=== PATIENT | female | born 1985 | race African-American/Black ===

== ENCOUNTER 2017-02-24 16:04 | Emergency (ER) | payer OTHER ==
[~2017-02-24] VITALS: Ht 154.9 cm; Wt 72.0 kg
[~2017-02-24 16:04] MED LIST: CEPH500C PO
[2017-02-24 16:07] VITALS: BP 137/76; PULSE 104; RESP 20; TEMP 98.3; O2SAT 97
--- NOTE | 2017-02-24 16:56 | RADRPT ---
EXAM DATE/TIME: 02/24/2017 16:39 [facility] COMPARISON: No previous studies available for comparison. INDICATIONS : Right distal foot pain, dropped heavy object on foot MEDICAL HISTORY : None. SURGICAL HISTORY : None. ENCOUNTER: Initial ACUITY: 1 day PAIN SCORE: 10/10 LOCATION: Right Foot FINDINGS: Three view examination of the right foot demonstrates a fracture at the distal aspect of the third di stal phalanx involving the tuft. No other fracture is seen. The tarsal bones appear intact. The int erphalangeal and metatarsophalangeal joints are intact. The calcaneus is intact. Bony mineralizatio n is normal. CONCLUSION: Fracturing of the distal aspect of the third distal phalanx. Alexandro Hinkle MD on February 24, 2017 at 16:52 Board Certified Radiologist. This report was verified electronically.
--- NOTE | 2017-02-24 17:09 | PD ---
HPI Chief Complaint: Injury Time Seen by Provider: 16:58 Travel History International Travel<30 days: No Contact w/Intl Traveler<30days: No Traveled to known affect area: No History of Present Illness HPI 31-year-old Afro-[place] female presents emergency department status post dropping her nebulizer on her right foot. She now complains of right third toe pain. She wonders about possible fracture. There is no wound or abrasion. She has no other injury. She is allergic to azithromycin and erythromycin. PFSH Past Medical History Arthritis: No Asthma: No Autoimmune Disease: No Blood Disorders: No Anxiety: No Depression: No Heart Rhythm Problems: No Cancer: No Cardiovascular Problems: No High Cholesterol: No Chemotherapy: No Chest Pain: No Congestive Heart Failure: No COPD: No Cerebrovascular Accident: No Diabetes: No Diminished Hearing: No Endocrine: No Gastrointestinal Disorders: No GERD: No Glaucoma: No Genitourinary: No Headaches: No Hepatitis: No Hiatal Hernia: No Heparin Induced Thrombocytopen: No Hypertension: No Immune Disorder: No Implanted Vascular Access Dvce: No Kidney Stones: No Musculoskeletal: No Neurologic: No Psychiatric: No Reproductive: No Respiratory: No Immunizations Current: Yes Migraines: No Myocardial Infarction: No Pneumonia: Yes Radiation Therapy: No Renal Failure: No Seizures: No Sickle Cell Disease: No Thyroid Disease: No Ulcer: No PNEUMOCCOCAL Vaccine (Year): 2 ?: Not LMP: 02/02/17 : 4 Para: 2 Miscarriage: 1 : 1 Past Surgical History AICD: No Appendectomy: No Arteriovenous Shunt: No Cardiac Surgery: No Cholecystectomy: No Ear Surgery: No Endocrine Surgery: No Eye Surgery: No Gynecologic Surgery: Yes ( 2004) Insulin Pump: No Joint Replacement: No Neurologic Surgery: No Oral Surgery: Yes Pacemaker: No Thoracic Surgery: No Other Surgery: Yes (EPIDURAL WITH DELIVERY 2004) Social History Alcohol Use: No Tobacco Use: No Substance Use: No Allergies-Medications (Allergen,Severity, Reaction): Coded Allergies: azithromycin (Unverified Allergy, Severe, 11/30/16) erythromycin base (Unverified Allergy, Severe, "COULDNT FEEL LEGS", ) Reported Meds & Prescriptions Reported Meds & Active Scripts Active Cephalexin 500 Mg Cap 500 Mg PO Q12H Review of Systems Except as stated in HPI: all other systems reviewed are Neg General / Constitutional: No: Fever Eyes: No: Visual changes HENT: No: Headaches Cardiovascular: No: Chest Pain or Discomfort Respiratory: No: Shortness of Breath Gastrointestinal: No: Abdominal Pain Genitourinary: No: Dysuria Musculoskeletal: No: Pain Skin: No Rash Neurologic: No: Weakness Psychiatric: No: Depression Endocrine: No: Polydipsia Hematologic/Lymphatic: No: Easy Bruising Physical Exam Narrative GENERAL: Patient appears no acute distress. SKIN: Warm and dry. Normal color. Normal turgor. No obvious signs of trauma. HEAD: Atraumatic. Normocephalic. EYES: Pupils equal and round. No scleral icterus. No injection or drainage. ENT: No nasal bleeding or discharge. Mucous membranes pink and moist. NECK: Trachea midline. No JVD. CARDIOVASCULAR: Regular rate and rhythm. RESPIRATORY: No accessory muscle use. Clear to auscultation. Breath sounds equal bilaterally. GASTROINTESTINAL: Abdomen soft, non-tender, nondistended. Hepatic and splenic margins not palpable. MUSCULOSKELETAL: Extremities without clubbing, cyanosis, or edema. No obvious deformities. No obvious signs of injury to the right foot however the patient complains of pain at the base of the right third toe. NEUROLOGICAL: Awake and alert. No obvious cranial nerve deficits. Motor grossly within normal limits. Five out of 5 muscle strength in the arms and legs. Normal speech. PSYCHIATRIC: Appropriate mood and affect; insight and judgment normal. Data Data Last Documented VS Vital Signs Date Time Temp Pulse Resp B/P (MAP) Pulse Ox O2 Delivery O2 Flow Rate FiO2 02/24/17 16:17 16 100 Room Air 02/24/17 16:07 98.3 104 137/76 (96) Orders Orders Foot, Complete ([id number]) (02/24/17 ) [facility] Medical Decision Making Medical Screen Exam Complete: Yes Emergency Medical Condition: Yes Differential Diagnosis Right foot contusion. Possible fracture. Possible dislocation. Narrative Course X-ray of the right foot is ordered. X-ray shows a fracture to this last week of the third distal phalanx of the right foot. Patient is placed in a postop shoe. She continues ice, ibuprofen 600 mg 4 times a day when necessary #40. Patient follow-up as needed. Diagnosis Primary Impression: Fracture of third toe, right, closed Qualified Codes: S92.501A - Displaced unspecified fracture of right lesser toe (s), initial encounter for closed fracture Patient Instructions: General Instructions, Toe Fracture (ED) Additional Instructions: X-ray shows a fracture to the third distal phalanx of the right foot. Patient is placed in a postop shoe. She continues ice, ibuprofen 600 mg 4 times a day when necessary #40. Patient follow-up as needed. Med/Other Pt SpecificInfo: Prescription(s) given Disposition: 01 DISCHARGE HOME Condition: Stable Kristian Giron Feb 24, 2017 17:09
[2017-02-24] MEDS ORDERED: IBUP-232 PO (17:11)
== END 2017-02-24 17:30 | disposition home or self-care (01) ==
LOC: NEPD 16:04
DX: S92.531A Displaced fracture of distal phalanx of right lesser toe(s), initial encounter for closed fracture (principal); W22.8XXA Striking against or struck by other objects, initial encounter
CPT/HCPCS: 73630; 99283; L3260

== ENCOUNTER 2017-07-01 15:20 | Observation (INO) | payer OTHER ==
[~2017-07-01] VITALS: Ht 152.4 cm; Wt 67.2 kg
[~2017-07-01 15:20] MED LIST changes: +IBUP-232 PO
[2017-07-01 15:26] VITALS: BP 110/60; PULSE 108; RESP 16; TEMP 98.9; O2SAT 99
[2017-07-01] MEDS ORDERED: SODIUM CHLOR 0.9% 1000 ML INJ 1,000 ML IV ONE (15:53)
[2017-07-01] MEDS ORDERED: KETOROLAC TROMETHAMINE 30 MG/ML (IVP) VIAL IV PUSH ONE (16:00)
[2017-07-01] MEDS ORDERED: ONDANSETRON HCL 4 MG/2 ML VIAL IVP ONE (16:00)
[2017-07-01] MEDS ORDERED: MORPHINE SULFATE 4 MG/ML INJ IV PUSH ONE (16:00)
--- NOTE | 2017-07-01 16:00 | PD ---
HPI Chief Complaint: Abdominal Pain Time Seen by Provider: 15:43 Travel History International Travel<30 days: No Contact w/Intl Traveler<30days: No Traveled to known affect area: No History of Present Illness HPI The patient is a 32-year-old female who presents to emergency department for lower abdominal pain and pelvic pain that radiates to the back. The patient states her symptoms started 2 days ago. Patient does note diarrhea last night which she describes as loose, watery, and brown without any visible blood. Most of the pain is located in the pelvic region, she denies any vaginal bleeding or discharge. Last menstrual cycle was May 28, 2017, she is unsure if she is . She is sexually active. She denies any vaginal discharge, but is worried about possible infections. She denies any nausea, vomiting, or upper abdominal pain. Symptoms are moderate. There are no current alleviating or exacerbating factors. She denies any sick contacts at home. She denies any recent antibiotic usage or history of C. difficile. She does work in the [address] [place] [address]. PFS Past Medical History Arthritis: No Asthma: No Autoimmune Disease: No Blood Disorders: No Anxiety: No Depression: No Heart Rhythm Problems: No Cancer: No Cardiovascular Problems: No High Cholesterol: No Chemotherapy: No Chest Pain: No Congestive Heart Failure: No COPD: No Cerebrovascular Accident: No Diabetes: No Diminished Hearing: No Endocrine: No Gastrointestinal Disorders: No GERD: No Glaucoma: No Genitourinary: No Headaches: No Hepatitis: No Hiatal Hernia: No Heparin Induced Thrombocytopen: No Hypertension: No Immune Disorder: No Implanted Vascular Access Dvce: No Kidney Stones: No Musculoskeletal: No Neurologic: No Psychiatric: No Reproductive: No Respiratory: No Immunizations Current: Yes Migraines: No Myocardial Infarction: No Pneumonia: Yes Radiation Therapy: No Renal Failure: No Seizures: No Sickle Cell Disease: No Thyroid Disease: No Ulcer: No PNEUMOCCOCAL Vaccine (Year): 2 ?: Not LMP: 06/02/17 : 4 Para: 2 Miscarriage: 1 : 1 Past Surgical History AICD: No Appendectomy: No Arteriovenous Shunt: No Cardiac Surgery: No Cholecystectomy: No Ear Surgery: No Endocrine Surgery: No Eye Surgery: No Gynecologic Surgery: Yes ( 2004) Insulin Pump: No Joint Replacement: No Neurologic Surgery: No Oral Surgery: Yes Pacemaker: No Thoracic Surgery: No Other Surgery: Yes (EPIDURAL WITH DELIVERY 2004) Social History Alcohol Use: No Tobacco Use: No Substance Use: No Allergies-Medications (Allergen,Severity, Reaction): Coded Allergies: azithromycin (Unverified Allergy, Severe, 11/30/16) erythromycin base (Unverified Allergy, Severe, "COULDNT FEEL LEGS", ) Reported Meds & Prescriptions Reported Meds & Active Scripts Active Ibuprofen 600 Mg Tab 600 Mg PO Q6H PRN Cephalexin 500 Mg Cap 500 Mg PO Q12H Review of Systems Except as stated in HPI: all other systems reviewed are Neg General / Constitutional: Positive: Chills, No: Fever Cardiovascular: No: Chest Pain or Discomfort Respiratory: No: Shortness of Breath Gastrointestinal: Positive: Diarrhea, Abdominal Pain, No: Nausea, Vomiting Genitourinary: Positive: Pelvic Pain, No: Urgency, Frequency, Dysuria, Discharge, Vaginal Bleeding Physical Exam Narrative GENERAL: Awake, alert, pleasant 32-year-old female who appears her stated age and is in no acute respiratory distress. SKIN: Focused skin assessment warm/dry. HEAD: Atraumatic. Normocephalic. EYES: No injection or drainage. ENT: No nasal bleeding or discharge. Mucous membranes pink and moist. NECK: Trachea midline. No JVD. CARDIOVASCULAR: Regular rate and rhythm. No murmur appreciated. RESPIRATORY: No accessory muscle use. Clear to auscultation. Breath sounds equal bilaterally. GASTROINTESTINAL: Abdomen soft, tender to palpation suprapubic and lower quadrants bilateral. Negative Hemphill's. Negative McBurney's. Back: No CVA tenderness. Pelvic: The exam was performed in the presence of a female nurse. MUSCULOSKELETAL: No obvious deformities. No clubbing. No cyanosis. No edema. NEUROLOGICAL: Awake and alert. No obvious cranial nerve deficits. Motor grossly within normal limits. Normal speech. PSYCHIATRIC: Appropriate mood and affect; insight and judgment normal. Data Data Last Documented VS Vital Signs Date Time Temp Pulse Resp B/P (MAP) Pulse Ox O2 Delivery O2 Flow Rate FiO2 07/01/17 17:39 84 20 112/75 (87) 100 Room Air 07/01/17 15:26 98.9 Orders Orders Complete Blood Count With Diff (07/01/17 15:53) Comprehensive Metabolic Panel (07/01/17 15:53) Gc And Chlamydia Pcr (07/01/17 15:53) Wet Prep Profile (07/01/17 15:53) Urinalysis - C+S If Indicated (07/01/17 15:53) Sodium Chlor 0.9% 1000 Ml Inj (Ns 1000 M (07/01/17 15:53) Ondansetron Inj (Zofran Inj) (07/01/17 16:00) Ed Urine Pregnancytest Poc (07/01/17 15:53) Lipase (07/01/17 15:53) Ketorolac Inj (Toradol Inj) (07/01/17 16:00) Morphine Inj (Morphine Inj) (07/01/17 16:00) Metronidazole (Flagyl) (07/01/17 17:15) Diatrizoate Liq ( Gastroview Liq) (07/01/17 17:15) Ct Abd/Pel W Iv Contrast(Rout) (07/01/17 ) Oral Contrast - Adult (07/01/17 17:23) Iohexol 350 Inj (Omnipaque 350 Inj) (07/01/17 19:40) Morphine Inj (Morphine Inj) (07/01/17 20:00) Ciprofloxacin (Cipro) (07/01/17 20:00) Admit Order (Ed Use Only) (07/01/17 21:21) Labs Laboratory Tests Test 07/01/17 16:25 07/01/17 16:26 07/01/17 16:32 Urine Color YELLOW Urine Turbidity HAZY Urine pH 5.5 Urine Specific [place] 1.025 Urine Protein 30 mg/dL Urine Glucose (UA) NEG mg/dL Urine Ketones NEG mg/dL Urine Occult Blood MOD Urine Nitrite NEG Urine Bilirubin NEG Urine Urobilinogen LESS THAN 2.0 MG/DL Urine Leukocyte Esterase NEG Urine RBC 6 /hpf Urine WBC 3 /hpf Urine Squamous Epithelial Cells 13 /hpf Urine Hyaline Casts 3 /lpf Urine Mucus MANY /lpf Microscopic Urinalysis Comment CULT NOT INDICATED White Blood Count 15.0 TH/MM3 Red Blood Count 4.52 MIL/MM3 Hemoglobin 12.0 GM/DL Hematocrit 37.0 % Mean Corpuscular Volume 81.8 FL Mean Corpuscular Hemoglobin 26.6 PG Mean Corpuscular Hemoglobin Concent 32.5 % Red Cell Distribution Width 14.1 % Platelet Count 316 TH/MM3 Mean Platelet Volume 8.8 FL Neutrophils (%) (Auto) 82.2 % Lymphocytes (%) (Auto) 9.1 % Monocytes (%) (Auto) 8.4 % Eosinophils (%) (Auto) 0.1 % Basophils (%) (Auto) 0.2 % Neutrophils # (Auto) 12.4 TH/MM3 Lymphocytes # (Auto) 1.4 TH/MM3 Monocytes # (Auto) 1.3 TH/MM3 Eosinophils # (Auto) 0.0 TH/MM3 Basophils # (Auto) 0.0 TH/MM3 CBC Comment DIFF FINAL Differential Comment Blood Urea Nitrogen 8 MG/DL Creatinine 0.82 MG/DL Random Glucose 95 MG/DL Total Protein 8.0 GM/DL Albumin 3.5 GM/DL Calcium Level 9.0 MG/DL Alkaline Phosphatase 67 U/L Aspartate Amino Transf (AST/SGOT) 13 U/L Alanine Aminotransferase (ALT/SGPT) 21 U/L Total Bilirubin 0.8 MG/DL Sodium Level 141 MEQ/L Potassium Level 3.4 MEQ/L Chloride Level 109 MEQ/L Carbon Dioxide Level 24.3 MEQ/L Anion Gap 8 MEQ/L Estimat Glomerular Filtration Rate 97 ML/MIN Lipase 70 U/L Clue Cells (Wet Prep) PRESENT Vaginal Trichomonas (Wet Prep) NONE SEEN Vaginal Yeast (Wet Prep) NONE SEEN Chlamydia trachomatis DNA (PCR) NOT DETECTED Neisseria gonorrhoeae DNA (PCR) NOT DETECTED MDM Medical Decision Making Medical Screen Exam Complete: Yes Emergency Medical Condition: Yes Medical Record Reviewed: Yes Differential Diagnosis Differential diagnosis includes PID, cervicitis, UTI, vaginitis, colitis, diverticulitis, viral syndrome, dehydration, , ectopic . Narrative Course IV was established, labs are drawn and sent, the patient was placed on cardiac telemetry monitoring and continuous pulse oximetry monitoring. A pelvic exam was completed in the presence of a female nurse. Bedside UA test was obtained and UA was sent to lab. The patient was signed out to the oncoming physician at 5 PM laboratory evaluation pending. Diagnosis Primary Impression: Bacterial vaginosis Condition: Nick Nelson MD Jul 01, 2017 16:00
[2017-07-01 16:55] LABS: AUTOMATED NEUTROPHIL # 12.4 TH/MM3 (1.8-7.7); BASOPHIL % 0.2 % (0.0-2.0); EOSINOPHIL % 0.1 % (0.0-4.0); LYMPH % 9.1 % (9.0-44.0); LYMPHOCYTE # 1.4 TH/MM3 (1.0-4.8); MEAN CELL VOLUME 81.8 FL (80.0-100.0); MEAN CORPUSCULAR HEMOGLOBIN 26.6 PG (27.0-34.0); MEAN CORPUSCULAR HGB CONC 32.5 % (32.0-36.0); MEAN PLATELET VOLUME 8.8 FL (7.0-11.0); MONO % 8.4 % (0.0-8.0); MONOCYTE # 1.3 TH/MM3 (0-0.9); NEUT % 82.2 % (16.0-70.0); PLATELET COUNT 316 TH/MM3 (150-450); RED BLOOD COUNT 4.52 MIL/MM3 (4.00-5.30); RED CELL DISTRIBUTION WIDTH 14.1 % (11.6-17.2)
[2017-07-01 17:06] LABS: BILIRUBIN, URINE NEG (NEG); BLOOD, URINE MOD (NEG); GLUCOSE,URINE NEG (NEG); HYALINE CAST, URINE 3 /lpf (RARE); KETONE, URINE NEG (NEG); MUCUS URINE MANY /lpf (OCC); NITRITE,URINE NEG (NEG); PH, URINE 5.5 (5.0-8.5); SQUAMOUS EPITHELIAL CELL URINE 13 /hpf (0-5); URINE COLOR YELLOW (YELLW/STRAW); URINE LEUKOCYTE ESTERASE NEG (NEG)
[2017-07-01 17:11] LABS: ALBUMIN 3.5 GM/DL (3.4-5.0); AST (GOT) 13 U/L (15-37); BICARBONATE 24.3 MEQ/L (21.0-32.0); BLOOD UREA NITROGEN 8 MG/DL (7-18); CHLORIDE 109 MEQ/L (98-107); CREATININE 0.82 MG/DL (0.50-1.00); GLOMERULAR FILTRATION RATE 97 ML/MIN (>89); GLUCOSE,RANDOM 95 MG/DL (74-106); SODIUM (NA) 141 MEQ/L (136-145)
[2017-07-01 17:12] LABS: ALT (GPT) 21 U/L (10-53)
[2017-07-01 17:14] LABS: ALKALINE PHOSPHATASE 67 U/L (45-117); TOTAL BILIRUBIN ADULT 0.8 MG/DL (0.2-1.0)
[2017-07-01] MEDS ORDERED: metroNIDAZOLE 500 MG TAB PO ONE (17:15)
[2017-07-01] MEDS ORDERED: DIATRIZOATE MEGLUM/DIATRIZOATE SOD 9 ML CUP PO ONE (17:15)
[2017-07-01 17:39] VITALS: BP 112/75; PULSE 84; RESP 20; O2SAT 100
--- NOTE | 2017-07-01 18:37 | PD ---
Data Data Last Documented VS Vital Signs Date Time Temp Pulse Resp B/P (MAP) Pulse Ox O2 Delivery O2 Flow Rate FiO2 07/01/17 17:39 84 20 112/75 (87) 100 Room Air 07/01/17 15:26 98.9 Orders Orders Complete Blood Count With Diff (07/01/17 15:53) Comprehensive Metabolic Panel (07/01/17 15:53) Gc And Chlamydia Pcr (07/01/17 15:53) Wet Prep Profile (07/01/17 15:53) Urinalysis - C+S If Indicated (07/01/17 15:53) Sodium Chlor 0.9% 1000 Ml Inj (Ns 1000 M (07/01/17 15:53) Ondansetron Inj (Zofran Inj) (07/01/17 16:00) Ed Urine Pregnancytest Poc (07/01/17 15:53) Lipase (07/01/17 15:53) Ketorolac Inj (Toradol Inj) (07/01/17 16:00) Morphine Inj (Morphine Inj) (07/01/17 16:00) Metronidazole (Flagyl) (07/01/17 17:15) Diatrizoate Liq ( Gastroview Liq) (07/01/17 17:15) Ct Abd/Pel W Iv Contrast(Rout) (07/01/17 ) Oral Contrast - Adult (07/01/17 17:23) Iohexol 350 Inj (Omnipaque 350 Inj) (07/01/17 19:40) Morphine Inj (Morphine Inj) (07/01/17 20:00) Ciprofloxacin (Cipro) (07/01/17 20:00) Labs Laboratory Tests Test 07/01/17 16:25 07/01/17 16:26 07/01/17 16:32 Urine Color YELLOW Urine Turbidity HAZY Urine pH 5.5 Urine Specific [place] 1.025 Urine Protein 30 mg/dL Urine Glucose (UA) NEG mg/dL Urine Ketones NEG mg/dL Urine Occult Blood MOD Urine Nitrite NEG Urine Bilirubin NEG Urine Urobilinogen LESS THAN 2.0 MG/DL Urine Leukocyte Esterase NEG Urine RBC 6 /hpf Urine WBC 3 /hpf Urine Squamous Epithelial Cells 13 /hpf Urine Hyaline Casts 3 /lpf Urine Mucus MANY /lpf Microscopic Urinalysis Comment CULT NOT INDICATED White Blood Count 15.0 TH/MM3 Red Blood Count 4.52 MIL/MM3 Hemoglobin 12.0 GM/DL Hematocrit 37.0 % Mean Corpuscular Volume 81.8 FL Mean Corpuscular Hemoglobin 26.6 PG Mean Corpuscular Hemoglobin Concent 32.5 % Red Cell Distribution Width 14.1 % Platelet Count 316 TH/MM3 Mean Platelet Volume 8.8 FL Neutrophils (%) (Auto) 82.2 % Lymphocytes (%) (Auto) 9.1 % Monocytes (%) (Auto) 8.4 % Eosinophils (%) (Auto) 0.1 % Basophils (%) (Auto) 0.2 % Neutrophils # (Auto) 12.4 TH/MM3 Lymphocytes # (Auto) 1.4 TH/MM3 Monocytes # (Auto) 1.3 TH/MM3 Eosinophils # (Auto) 0.0 TH/MM3 Basophils # (Auto) 0.0 TH/MM3 CBC Comment DIFF FINAL Differential Comment Blood Urea Nitrogen 8 MG/DL Creatinine 0.82 MG/DL Random Glucose 95 MG/DL Total Protein 8.0 GM/DL Albumin 3.5 GM/DL Calcium Level 9.0 MG/DL Alkaline Phosphatase 67 U/L Aspartate Amino Transf (AST/SGOT) 13 U/L Alanine Aminotransferase (ALT/SGPT) 21 U/L Total Bilirubin 0.8 MG/DL Sodium Level 141 MEQ/L Potassium Level 3.4 MEQ/L Chloride Level 109 MEQ/L Carbon Dioxide Level 24.3 MEQ/L Anion Gap 8 MEQ/L Estimat Glomerular Filtration Rate 97 ML/MIN Lipase 70 U/L Clue Cells (Wet Prep) PRESENT Vaginal Trichomonas (Wet Prep) NONE SEEN Vaginal Yeast (Wet Prep) NONE SEEN Chlamydia trachomatis DNA (PCR) NOT DETECTED Neisseria gonorrhoeae DNA (PCR) NOT DETECTED MDM Supervised Visit with CHERI: No Narrative Course The patient was initially evaluated by the previous provider and signed the beginning of my shift at approximately 5:00 PM pending labs, and disposition. See his note for further details. Briefly this is a 32-year-old female who presents for evaluation of lower abdominal pain, pelvic pain, diarrhea. She was provided pain medication and on my assessment she states her pain is improved, however she still has some pain that is mainly suprapubic. There is mild suprapubic tenderness. No peritoneal signs. Vital signs are within normal limits. She is afebrile. CBC: WBC 15, hemoglobin 12, hematocrit 37, platelets 316. CMP is essentially unremarkable. Lipase is 70. UA shows many mucus, negative leukocyte esterase, negative nitrites, moderate occult blood. Wet prep is positive for clue cells. The patient was given a dose of Flagyl. CT abdomen pelvis: CONCLUSION: 1. No definite acute abnormality seen. 2. Portable thickening of the sigmoid colon versus simple lack of distention. In the correct clinical situation, some degree of colitis cannot be excluded. Surrounding inflammatory change is not seen. Patient was made aware of all findings. She had already received Toradol and a dose of morphine and continues to complain of lower abdominal pain. She was given a dose of 500 mg of oral Flagyl for bacterial vaginosis and will also be given a dose of 500 mg of oral Cipro for colitis. She will be given a second dose of morphine and will be reassessed. On reassessment the patient continues to have abdominal pain and had a loose watery bowel movement on the stretcher. Given ongoing/intractable abdominal pain, she will be admitted for overnight observation. Case discussed with hospitalist Dr. Schilling who will admit the patient to her service. Diagnosis Primary Impression: Intractable abdominal pain Additional Impressions: Colitis Bacterial vaginosis Admitting Information Admitting Physician Requests: Observation Condition: Stable Yves Tee MD Jul 01, 2017 18:37
[2017-07-01] MEDS ORDERED: IOHEXOL 350 MG/ML 10 ML VIAL (for RAD DIAG) IVCONTRAST ONE (19:40)
--- NOTE | 2017-07-01 19:48 | RADRPT ---
EXAM DATE/TIME: 07/01/2017 19:00 [facility] COMPARISON: No previous studies available for comparison. INDICATIONS : Abdomen pain. IV CONTRAST: 96 cc Omnipaque 350 (iohexol) IV ORAL CONTRAST: Partial prescribed oral contrast ingested. RADIATION DOSE: 7.70 CTDIvol (mGy) MEDICAL HISTORY : None SURGICAL HISTORY : section. 2 ENCOUNTER: Initial ACUITY: 1 day PAIN SCALE: 5/10 LOCATION: Bilateral abdomen TECHNIQUE: Volumetric scanning of the abdomen and pelvis was performed. Using automated exposure control and ad justment of the mA and/or kV according to patient size, radiation dose was kept as low as reasonably achievable to obtain optimal diagnostic quality images. DICOM format image data is available electro nically for review and comparison. FINDINGS: LOWER LUNGS: The visualized lower lungs are clear. LIVER: Homogeneous density without lesion. There is no dilation of the biliary tree. No calcified gallston es. SPLEEN: Normal size without lesion. PANCREAS: Within normal limits. KIDNEYS: Normal in size and shape. There is no mass, stone or hydronephrosis. ADRENAL GLANDS: Within normal limits. VASCULAR: There is no aortic aneurysm. BOWEL/MESENTERY: Dilated bowel is not seen. There is partial thickening of the sigmoid colon versus simple lack of dis tention. Surrounding inflammatory changes not seen. ABDOMINAL WALL: Within normal limits. RETROPERITONEUM: There is no lymphadenopathy. BLADDER: No wall thickening or mass. REPRODUCTIVE: The uterus is retroverted. INGUINAL: There is no lymphadenopathy or hernia. MUSCULOSKELETAL: Within normal limits for patient age. CONCLUSION: 1. No definite acute abnormality seen. 2. Portable thickening of the sigmoid colon versus simple lack of distention. In the correct clinical situation, some degree of colitis cannot be excluded. Surrounding inflammatory change is not seen. Alexandro Hinkle MD on July 01, 2017 at 19:43 Board Certified Radiologist. This report was verified electronically.
[2017-07-01] MEDS ORDERED: CIPROFLOXACIN 500 MG TAB PO ONE (20:00)
[2017-07-01] MEDS ORDERED: MORPHINE SULFATE 2 MG/ML SYRINGE IV PUSH ONE (20:00)
[2017-07-01 23:00] VITALS: BP 115/70; PULSE 96; RESP 14; O2SAT 100
[2017-07-02] MEDS ORDERED: NALOXONE HCL 0.4 MG/ML AMP IV PUSH PRN
[2017-07-02] MEDS ORDERED: ONDANSETRON HCL 4 MG/2 ML VIAL IVP PRN
[2017-07-02] MEDS ORDERED: MAGNESIUM HYDROXIDE SUSP 30 ML CUP PO PRN
[2017-07-02] MEDS ORDERED: LACTULOSE SYRUP 20 GM/30 ML CUP PO PRN
[2017-07-02] MEDS ORDERED: ACETAMINOPHEN 325 MG TAB PO PRN
[2017-07-02] MEDS ORDERED: BISACODYL 10 MG SUPP RECTAL PRN
[2017-07-02] MEDS ORDERED: SODIUM CHLORIDE 0.9% FLUSH 10 ML FLUSH IV FLUSH PRN
[2017-07-02] MEDS ORDERED: SENNOSIDES 8.6 MG TAB PO PRN
--- NOTE | 2017-07-02 00:07 | HHI.HP ---
[facility] Physician AMRITA Frey Admission Diagnosis Intractable abdominal pain, bacterial vaginosis, colitis Diagnoses: Travel History International Travel<30 Days: No Contact w/Intl Traveler <30 Da: No Traveled to Known Affected Are: No History of Present Illness 32-year-old female with no significant past medical history presents to the emergency department with 72 hours of abdominal pain and diarrhea. The patient reports fecal incontinence and severe lower abdominal pain with associated diarrhea. She denies any nausea/vomiting. No fevers/chills. She reports that the pain is still severe despite IV pain medication. No chest pain or shortness of breath. No fatigue. Review of Systems Except as stated in HPI: all other systems reviewed are Neg Past Family Social History Past Medical History None Past Surgical History None Reported Medications Reported Meds & Active Scripts Active Ibuprofen 600 Mg Tab 600 Mg PO Q6H PRN Cephalexin 500 Mg Cap 500 Mg PO Q12H Allergies: Coded Allergies: azithromycin (Unverified Allergy, Severe, 11/30/16) erythromycin base (Unverified Allergy, Severe, "COULDNT FEEL LEGS", ) Family History Mother with diabetes mellitus Social History Occasional alcohol. Denies tobacco and illicit drugs. Physical Exam Vital Signs Vital Signs Date Time Temp Pulse Resp B/P (MAP) Pulse Ox O2 Delivery O2 Flow Rate FiO2 07/01/17 23:00 96 14 115/70 (85) 100 Room Air 07/01/17 17:39 84 20 112/75 (87) 100 Room Air 07/01/17 15:26 98.9 108 16 110/60 (77) 99 Physical Exam GENERAL: -[place] female lying in bed SKIN: No rashes, ecchymoses or lesions. Cool and dry. HEAD: Atraumatic. Normocephalic. No temporal or scalp tenderness. EYES: Pupils equal round and reactive. Extraocular motions intact. No scleral icterus. No injection or drainage. ENT: Nose without bleeding, purulent drainage or septal hematoma. Throat without erythema, tonsillar hypertrophy or exudate. Uvula midline. Airway patent. NECK: Trachea midline. No JVD or lymphadenopathy. Supple, nontender, no meningeal signs. CARDIOVASCULAR: Regular rate and rhythm without murmurs, gallops, or rubs. RESPIRATORY: Clear to auscultation. Breath sounds equal bilaterally. No wheezes , rales, or rhonchi. GASTROINTESTINAL: Abdomen soft, tender to palpation worse in the lower quadrant , nondistended. No hepato-splenomegaly, or palpable masses. No guarding. MUSCULOSKELETAL: Extremities without clubbing, cyanosis, or edema. No joint tenderness, effusion, or edema noted. No calf tenderness. NEUROLOGICAL: Awake and alert. Cranial nerves II through XII intact. Motor and sensory grossly within normal limits. Normal speech. Laboratory Laboratory Tests Test 07/01/17 16:25 07/01/17 16:26 07/01/17 16:32 Urine Color YELLOW Urine Turbidity HAZY Urine pH 5.5 Urine Specific [place] 1.025 Urine Protein 30 Urine Glucose (UA) NEG Urine Ketones NEG Urine Occult Blood MOD Urine Nitrite NEG Urine Bilirubin NEG Urine Urobilinogen LESS THAN 2.0 Urine Leukocyte Esterase NEG Urine RBC 6 Urine WBC 3 Urine Squamous Epithelial Cells 13 Urine Hyaline Casts 3 Urine Mucus MANY Microscopic Urinalysis Comment CULT NOT INDICATED White Blood Count 15.0 Red Blood Count 4.52 Hemoglobin 12.0 Hematocrit 37.0 Mean Corpuscular Volume 81.8 Mean Corpuscular Hemoglobin 26.6 Mean Corpuscular Hemoglobin Concent 32.5 Red Cell Distribution Width 14.1 Platelet Count 316 Mean Platelet Volume 8.8 Neutrophils (%) (Auto) 82.2 Lymphocytes (%) (Auto) 9.1 Monocytes (%) (Auto) 8.4 Eosinophils (%) (Auto) 0.1 Basophils (%) (Auto) 0.2 Neutrophils # (Auto) 12.4 Lymphocytes # (Auto) 1.4 Monocytes # (Auto) 1.3 Eosinophils # (Auto) 0.0 Basophils # (Auto) 0.0 CBC Comment DIFF FINAL Differential Comment Blood Urea Nitrogen 8 Creatinine 0.82 Random Glucose 95 Total Protein 8.0 Albumin 3.5 Calcium Level 9.0 Alkaline Phosphatase 67 Aspartate Amino Transf (AST/SGOT) 13 Alanine Aminotransferase (ALT/SGPT) 21 Total Bilirubin 0.8 Sodium Level 141 Potassium Level 3.4 Chloride Level 109 Carbon Dioxide Level 24.3 Anion Gap 8 Estimat Glomerular Filtration Rate 97 Lipase 70 Clue Cells (Wet Prep) PRESENT Vaginal Trichomonas (Wet Prep) NONE SEEN Vaginal Yeast (Wet Prep) NONE SEEN Chlamydia trachomatis DNA (PCR) NOT DETECTED Neisseria gonorrhoeae DNA (PCR) NOT DETECTED Result Diagram: 07/01/17 1626 07/01/17 1626 [facility]: No/Low Risk (score <= 1) Caprini Risk Assessment Model Point Value = 1 Point Value = 2 Point Value = 3 Point Value = 5 Age 41-60 Minor surgery BMI > 25 kg/m2 Swollen legs Varicose veins or History of unexplained or recurrent spontaneous Oral contraceptives or hormone replacement Sepsis (< 1 month) Serious lung disease, including pneumonia (< 1 month) Abnormal pulmonary function Acute myocardial infarction Congestive heart failure (< 1 month) History of inflammatory bowel disease Medical patient at bed rest Age 61-74 Arthroscopic surgery Major open surgery (> 45 min) Laparoscopic surgery (> 45 min) Malignancy Confined to bed (> 72 hours) Immobilizing plaster cast Central venous access Age >= 75 History of VTE Family history of VTE Factor V Leiden Prothrombin [id number] Lupus anticoagulant Anticardiolipin antibodies Elevated serum homocysteine Heparin-induced thrombocytopenia Other congenital or acquired thrombophilia Stroke (< 1 month) Elective arthroplasty Hip, pelvis, or leg fracture Acute spinal cord injury (< 1 month) Prophylaxis Regimen Total Risk Factor Score Risk Level Prophylaxis Regimen 0-1 Low Early ambulation 2 Moderate Order ONE of the following: *Sequential Compression Device (SCD) *Heparin 5000 units SQ BID 3-4 Higher Order ONE of the following medications: *Heparin 5000 units SQ TID *Enoxaparin/Lovenox 40 mg SQ daily (WT < 150 kg, CrCl > 30 mL/min) *Enoxaparin/Lovenox 30 mg SQ daily (WT < 150 kg, CrCl > 10-29 mL/min) *Enoxaparin/Lovenox 30 mg SQ BID (WT < 150 kg, CrCl > 30 mL/min) AND/OR *Sequential Compression Device (SCD) 5 or more Highest Order ONE of the following medications: *Heparin 5000 units SQ TID (Preferred with Epidurals) *Enoxaparin/Lovenox 40 mg SQ daily (WT < 150 kg, CrCl > 30 mL/min) *Enoxaparin/Lovenox 30 mg SQ daily (WT < 150 kg, CrCl > 10-29 mL/min) *Enoxaparin/Lovenox 30 mg SQ BID (WT < 150 kg, CrCl > 30 mL/min) AND *Sequential Compression Device (SCD) Assessment and Plan Assessment and Plan Assessment/plan: 1. Abdominal pain/colitis CT of the abdomen/pelvis shows thickening of the sigmoid colon with possible colitis Cipro/Flagyl Morphine for pain P.o. diet as tolerated 2. Bacterial vaginosis Flagyl 3. Hypokalemia Status post p.o. repletion Monitor BMP FEN Regular diet as tolerated Electrolytes: as above NS at 80 cc/hr Fanny Schilling MD Jul 02, 2017 00:07
[2017-07-02] MEDS ORDERED: POTASSIUM CHLORIDE 25 MEQ EFFERVESCENT TAB PO ONE (00:15)
[2017-07-02] MEDS: SODIUM CHLOR 0.9% 1000 ML INJ 1,000 ML IV SCH ×3 (00:57→22:35)
[2017-07-02] MEDS: MORPHINE SULFATE 4 MG/ML INJ IV PUSH PRN ×6 (01:12→23:54)
[2017-07-02 04:16] VITALS: BP 96/55; PULSE 84; RESP 16; TEMP 98.7; O2SAT 100
[2017-07-02] MEDS: metroNIDAZOLE 500 MG TAB PO SCH ×3 (05:27→22:34)
[2017-07-02 07:27] VITALS: BP 108/75; PULSE 97; RESP 20; TEMP 98.7; O2SAT 100
[2017-07-02 07:32] LABS: BICARBONATE 22.7 MEQ/L (21.0-32.0); CALCIUM 8.1 MG/DL (8.5-10.1); CREATININE 0.72 MG/DL (0.50-1.00)
[2017-07-02] MEDS ORDERED: POTASSIUM CHLORIDE 20 MEQ CONTROLLED RELEASE TAB PO ONE (08:00)
[2017-07-02] MEDS: CIPROFLOXACIN 500 MG TAB PO SCH ×2 (08:29→22:34)
[2017-07-02] MEDS: SODIUM CHLORIDE 0.9% FLUSH 10 ML FLUSH IV FLUSH SCH ×2 (08:30→21:00)
[2017-07-02] MEDS ORDERED: DOCUSATE SODIUM 50 MG/SENNA 8.6 MG TAB PO SCH (09:00)
--- NOTE | 2017-07-02 09:37 | HHI.PR ---
Subjective Remarks Follow up for colitis. The patient reports continued diffuse lower abdominal throbbing pains, rated 8/10. She does get some relief with IV morphine. She reports continued nonbloody diarrhea overnight, approximately 5 episodes since her arrival. She states her rectum feels "sore" from all the diarrhea. Denies nausea/vomiting. Reports chills, no fever. She only wants to try liquid diet at this time as she does not feel she could tolerate solid food. She has no other medical complaints at this time. Denies recent antibiotic use. Denies any sick contacts. Denies any prior history of colitis. Objective Vitals Vital Signs Date Time Temp Pulse Resp B/P (MAP) Pulse Ox O2 Delivery O2 Flow Rate FiO2 07/02/17 07:27 98.7 97 20 108/75 (86) 100 07/02/17 04:16 98.7 84 16 96/55 (69) 100 07/02/17 00:37 07/01/17 23:00 96 14 115/70 (85) 100 Room Air 07/01/17 17:39 84 20 112/75 (87) 100 Room Air 07/01/17 15:26 98.9 108 16 110/60 (77) 99 Result Diagram: 07/01/17 1626 07/02/17 0535 Imaging Last Impressions Abdomen/Pelvis CT 07/01/17 0000 Signed Impressions: Service Date/Time: Saturday, July 01, 2017 19:00 - CONCLUSION: 1. No definite acute abnormality seen. 2. Portable thickening of the sigmoid colon versus simple lack of distention. In the correct clinical situation, some degree of colitis cannot be excluded. Surrounding inflammatory change is not seen. Alexandro Hinkle MD Objective Remarks GENERAL: Well-nourished, well-developed young female patient in [facility]. SKIN: Warm and dry. No rash. HEENT: Normocephalic. Atraumatic.Pupils equal and round.Mucous membranes pink and moist. CARDIOVASCULAR: Regular rate and rhythm. No murmur appreciated. RESPIRATORY: No accessory muscle use. Clear to auscultation. Breath sounds equal bilaterally. GASTROINTESTINAL: Abdomen soft, nondistended, diffuse lower abdominal TTP. Slightly hyperactive bowel sounds. MUSCULOSKELETAL: No obvious deformities. Extremities without clubbing, cyanosis , or edema. NEUROLOGICAL: Awake and alert. No obvious cranial nerve deficits. Motor grossly within normal limits. Normal speech. PSYCHIATRIC: Appropriate mood and affect; insight and judgment normal. Medications and IVs Current Medications Medications (Trade) Dose Ordered Sig/Elis Route Start Time Stop Time Status Last Admin (Cipro) 500 mg Q12HR PO 07/02/17 09:00 07/02/17 08:29 (Flagyl) 500 mg Q8HR PO 07/02/17 06:00 07/02/17 05:27 (Morphine Inj) 4 mg Q3H PRN IV PUSH 07/02/17 00:00 07/02/17 08:30 Sodium Chloride 1,000 ml @ 80 mls/hr [id number] IV 07/01/17 23:59 07/02/17 00:57 (NS Flush) 2 ml UNSCH PRN IV FLUSH 07/02/17 00:00 (NS Flush) 2 ml BID IV FLUSH 07/02/17 09:00 (Tylenol) 650 mg Q4H PRN PO 07/02/17 00:00 (Zofran Inj) 4 mg Q6H PRN IVP 07/02/17 00:00 (Narcan Inj) 0.4 mg UNSCH PRN IV PUSH 07/02/17 00:00 (Ophelia-Colace) 1 tab BID PO 07/02/17 09:00 (Milk Of Magnesia Liq) 30 ml Q12H PRN PO 07/02/17 00:00 (Senokot) 17.2 mg Q12H PRN PO 07/02/17 00:00 (Dulcolax Supp) 10 mg DAILY PRN RECTAL 07/02/17 00:00 (Lactulose Liq) 30 ml DAILY PRN PO 07/02/17 00:00 A/P Assessment and Plan 32-year-old female with no significant past medical history presents with a 3 day history of abdominal pain and intractable diarrhea Sepsis with acute colitis: Patient meets sepsis criteria with WBC 15K, tachycardia HR 108, and suspected source-colitis. -CT abd/pelvis reviewed, shows thickening of the sigmoid colon, consistent with mild colitis -Continue antibiotics with cipro/flagyl -Pain control with IV morphine prn -Clear liquid diet, advance as tolerated -check stool studies, negative for Cdiff -Continue IVF hydration with NS at 80cc/hr -monitor for improvement Bacterial Vaginosis: diagnosed in ER with +wet prep for clue cells. -Continue flagyl Hypokalemia/Hypomagnesemia: secondary to diarrhea. -continue po KCl replacement and give IV mag sulfate x2G -monitor K/Mag DVT Prophylaxis: teds/SCDs Discharge Planning Possible discharge in 1-2 days if tolerating diet and if diarrhea improves. Discussed with case management, RN. Charlotte Bagley PA-C Jul 02, 2017 9:37 am
[2017-07-02 09:54] LABS: AUTOMATED NEUTROPHIL # 9.3 TH/MM3 (1.8-7.7); BASOPHIL % 0.2 % (0.0-2.0); EOSINOPHIL % 0.4 % (0.0-4.0); HEMATOCRIT 33.2 % (35.0-46.0); HEMOGLOBIN 10.8 GM/DL (11.6-15.3); LYMPH % 17.3 % (9.0-44.0); LYMPHOCYTE # 2.2 TH/MM3 (1.0-4.8); MEAN CELL VOLUME 81.9 FL (80.0-100.0); MEAN CORPUSCULAR HEMOGLOBIN 26.5 PG (27.0-34.0); MEAN CORPUSCULAR HGB CONC 32.4 % (32.0-36.0); MEAN PLATELET VOLUME 8.3 FL (7.0-11.0); MONO % 8.5 % (0.0-8.0); MONOCYTE # 1.1 TH/MM3 (0-0.9); NEUT % 73.6 % (16.0-70.0); PLATELET COUNT 269 TH/MM3 (150-450); RED BLOOD COUNT 4.06 MIL/MM3 (4.00-5.30); RED CELL DISTRIBUTION WIDTH 14.3 % (11.6-17.2); WHITE BLOOD COUNT 12.6 TH/MM3 (4.0-11.0)
[2017-07-02 12:38] VITALS: BP 99/53; PULSE 78; RESP 18; TEMP 98; O2SAT 99
[2017-07-02] MEDS: MAGNESIUM SULFATE 1 GM PREMIX 100 ML IV SCH ×2 (13:05→14:36)
[2017-07-02 16:03] VITALS: BP 100/54; PULSE 73; RESP 18; TEMP 98.8; O2SAT 100
[2017-07-02 22:27] VITALS: BP 106/72; PULSE 77; RESP 16; TEMP 98.1; O2SAT 98
[2017-07-02] MEDS ORDERED: WITCH HAZEL 50%/GLYCERIN 12.5% 40 PAD JAR TOPICAL PRN (23:00)
[2017-07-03 00:50] LABS: AUTOMATED NEUTROPHIL # 7.5 TH/MM3 (1.8-7.7); BASOPHIL % 0.3 % (0.0-2.0); EOSINOPHIL # 0.2 TH/MM3 (0-0.4); EOSINOPHIL % 1.7 % (0.0-4.0); HEMATOCRIT 32.6 % (35.0-46.0); HEMOGLOBIN 10.6 GM/DL (11.6-15.3); LYMPH % 21.9 % (9.0-44.0); LYMPHOCYTE # 2.5 TH/MM3 (1.0-4.8); MEAN CELL VOLUME 80.7 FL (80.0-100.0); MEAN CORPUSCULAR HEMOGLOBIN 26.2 PG (27.0-34.0); MEAN CORPUSCULAR HGB CONC 32.5 % (32.0-36.0); MEAN PLATELET VOLUME 8.4 FL (7.0-11.0); MONO % 10.8 % (0.0-8.0); MONOCYTE # 1.2 TH/MM3 (0-0.9); NEUT % 65.3 % (16.0-70.0); PLATELET COUNT 285 TH/MM3 (150-450); RED BLOOD COUNT 4.03 MIL/MM3 (4.00-5.30); RED CELL DISTRIBUTION WIDTH 14.2 % (11.6-17.2); WHITE BLOOD COUNT 11.5 TH/MM3 (4.0-11.0)
[2017-07-03 03:07] VITALS: BP 95/65; PULSE 82; RESP 18; TEMP 98; O2SAT 100
[2017-07-03] MEDS: metroNIDAZOLE 500 MG TAB PO SCH ×3 (06:15→20:45)
[2017-07-03 06:16] VITALS: BP 104/65; PULSE 85; RESP 16; TEMP 97.7; O2SAT 99
[2017-07-03 07:32] VITALS: BP 103/58; PULSE 67; RESP 20; TEMP 98.5; O2SAT 100
[2017-07-03] MEDS: CIPROFLOXACIN 500 MG TAB PO SCH ×2 (08:09→20:45)
[2017-07-03] MEDS: MORPHINE SULFATE 4 MG/ML INJ IV PUSH PRN (08:10)
[2017-07-03] MEDS: SODIUM CHLORIDE 0.9% FLUSH 10 ML FLUSH IV FLUSH SCH ×2 (08:10→20:47)
--- NOTE | 2017-07-03 08:48 | HHI.PR ---
Subjective Remarks Follow up for colitis, shigella, BV. The patient reports feeling slight better today, however still with mild diffuse lower abdominal soreness. She reports 30+ episodes of watery diarrhea last night. She states the diarrhea has improved so far today. She had some nausea last night, no vomiting. She reports chills, no fever. She wants to try more solid foods. She has no other medical complaints at this time. Objective Vitals Vital Signs Date Time Temp Pulse Resp B/P (MAP) Pulse Ox O2 Delivery O2 Flow Rate FiO2 07/03/17 07:32 98.5 67 20 103/58 (73) 100 07/03/17 06:16 97.7 85 16 104/65 (78) 99 07/03/17 03:07 98.0 82 18 95/65 (75) 100 07/02/17 22:27 98.1 77 16 106/72 (83) 98 07/02/17 18:33 20 07/02/17 16:03 98.8 73 18 100/54 (69) 100 07/02/17 12:38 98.0 78 18 99/53 (68) 99 I/O 07/02/17 07/02/17 07/02/17 07/03/17 07/03/17 07/03/17 07:00 15:00 23:00 07:00 15:00 23:00 Intake Total 100 ml Balance 100 ml Intake IV Total 100 ml # Voids 5 # Bowel Movements 5 Result Diagram: 07/03/17 0022 07/02/17 0535 Imaging Last Impressions Abdomen/Pelvis CT 07/01/17 0000 Signed Impressions: Service Date/Time: Saturday, July 01, 2017 19:00 - CONCLUSION: 1. No definite acute abnormality seen. 2. Portable thickening of the sigmoid colon versus simple lack of distention. In the correct clinical situation, some degree of colitis cannot be excluded. Surrounding inflammatory change is not seen. Alexandro Hinkle MD Objective Remarks GENERAL: Well-nourished, well-developed young female patient in [facility]. SKIN: Warm and dry. No rash. HEENT: Normocephalic. Atraumatic.Pupils equal and round.Mucous membranes pink and moist. CARDIOVASCULAR: Regular rate and rhythm. No murmur appreciated. RESPIRATORY: No accessory muscle use. Clear to auscultation. Breath sounds equal bilaterally. GASTROINTESTINAL: Abdomen soft, nondistended, nontender today, improved. Slightly hyperactive bowel sounds. MUSCULOSKELETAL: No obvious deformities. Extremities without clubbing, cyanosis , or edema. NEUROLOGICAL: Awake and alert. No obvious cranial nerve deficits. Motor grossly within normal limits. Normal speech. PSYCHIATRIC: Appropriate mood and affect; insight and judgment normal. Medications and IVs Current Medications Medications (Trade) Dose Ordered Sig/Elis Route Start Time Stop Time Status Last Admin (Cipro) 500 mg Q12HR PO 07/02/17 09:00 07/03/17 08:09 (Flagyl) 500 mg Q8HR PO 07/02/17 06:00 07/03/17 06:15 (Morphine Inj) 4 mg Q3H PRN IV PUSH 07/02/17 00:00 07/03/17 08:10 Sodium Chloride 1,000 ml @ 80 mls/hr [id number] IV 07/01/17 23:59 07/02/17 22:35 (NS Flush) 2 ml UNSCH PRN IV FLUSH 07/02/17 00:00 (NS Flush) 2 ml BID IV FLUSH 07/02/17 09:00 (Tylenol) 650 mg Q4H PRN PO 07/02/17 00:00 (Zofran Inj) 4 mg Q6H PRN IVP 07/02/17 00:00 07/02/17 14:36 (Narcan Inj) 0.4 mg UNSCH PRN IV PUSH 07/02/17 00:00 (Milk Of Magnesia Liq) 30 ml Q12H PRN PO 07/02/17 00:00 (Senokot) 17.2 mg Q12H PRN PO 07/02/17 00:00 (Dulcolax Supp) 10 mg DAILY PRN RECTAL 07/02/17 00:00 (Lactulose Liq) 30 ml DAILY PRN PO 07/02/17 00:00 (Tucks Pads) 1 applic UNSCH PRN TOPICAL 07/02/17 23:00 07/03/17 03:42 A/P Assessment and Plan 32-year-old female with no significant past medical history presents with a 3 day history of abdominal pain and intractable diarrhea Sepsis with acute colitis, +shigella: Patient meets sepsis criteria with WBC 15K , tachycardia HR 108, and suspected source-colitis. -CT abd/pelvis reviewed, shows thickening of the sigmoid colon, consistent with mild colitis -Continue antibiotics with cipro/flagyl -Pain control with IV morphine prn -Clear liquid diet initially, advanced to regular diet today -checked stool studies, positive for Shigella, negative for Cdiff -Continue IVF hydration with NS at 80cc/hr -monitor for improvement, patient with continued diarrhea overnight Bacterial Vaginosis: diagnosed in ER with +wet prep for clue cells. -Continue flagyl Hypokalemia/Hypomagnesemia: secondary to diarrhea. -continue po KCl replacement and give IV mag sulfate x2G -monitor K/Mag, labs pending today DVT Prophylaxis: teds/SCDs Discharge Planning Possible discharge later today or tomorrow if tolerating diet and if diarrhea improves. Attending Statement patient was seen and examined today. abdominal pain is better. tolerated the diet this morning. no fever. continue with antibiotics. dc home within the next 24 hrs if tolerates the diet. Charlotte Bagley PA-C Jul 03, 2017 08:48 Corin Mcdonald MD Jul 03, 2017 12:38
[2017-07-03] MEDS: LACTOBACILLUS ACIDOPHILUS TAB PO SCH ×3 (09:00→17:38)
[2017-07-03 10:59] VITALS: BP 100/63; PULSE 88; RESP 20; TEMP 98.7; O2SAT 100
[2017-07-03 12:02] LABS: BICARBONATE 26.9 MEQ/L (21.0-32.0); CALCIUM 8.4 MG/DL (8.5-10.1); CREATININE 0.74 MG/DL (0.50-1.00)
[2017-07-03] MEDS: SODIUM CHLOR 0.9% 1000 ML INJ 1,000 ML IV SCH (13:29)
[2017-07-03 15:44] VITALS: BP 100/66; PULSE 85; RESP 20; TEMP 98.6; O2SAT 99
[2017-07-03] MEDS: ACETAMINOPHEN/HYDROcodone 325 MG/5 MG TAB PO PRN (17:40)
[2017-07-03 22:05] VITALS: BP 111/74; PULSE 78; O2SAT 100
[2017-07-04 00:29] VITALS: BP 102/67; PULSE 78; RESP 16; TEMP 98.9; O2SAT 98
[2017-07-04] MEDS: SODIUM CHLOR 0.9% 1000 ML INJ 1,000 ML IV SCH (01:53)
[2017-07-04 04:43] VITALS: BP 117/72; PULSE 82; RESP 16; TEMP 98.4; O2SAT 100
[2017-07-04] MEDS: metroNIDAZOLE 500 MG TAB PO SCH (05:16)
[2017-07-04 07:22] VITALS: BP 102/59; PULSE 74; RESP 16; TEMP 98.8; O2SAT 96
[2017-07-04] MEDS: LACTOBACILLUS ACIDOPHILUS TAB PO SCH (07:41)
[2017-07-04] MEDS: CIPROFLOXACIN 500 MG TAB PO SCH (07:41)
[2017-07-04] MEDS: ACETAMINOPHEN/HYDROcodone 325 MG/5 MG TAB PO PRN (07:42)
[2017-07-04] MEDS ORDERED: METR-1 PO (08:58)
[2017-07-04] MEDS ORDERED: CIPR-9 PO (08:58)
[2017-07-04] MEDS ORDERED: LACTCHW3 CHEW (08:58)
--- NOTE | 2017-07-04 08:59 | HHI.DCPOC ---
Discharge Care Plan Diagnosis: (1) Shigella enteritis (2) Colitis (3) Bacterial vaginosis Goals to Promote Your Health * To prevent worsening of your condition and complications * To maintain your health at the optimal level Directions to Meet Your Goals Take your medications as prescribed Follow your dietary instruction Follow activity as directed Keep your appointments as scheduled Take your immunizations and boosters as scheduled If your symptoms worsen call your PCP, if no PCP go to Urgent Care Center or Emergency Room Smoking is Dangerous to Your Health. Avoid second hand smoke Call the 24-hour hour crisis hotline for domestic abuse at Charlotte Bagley PA-C Jul 04, 2017 8:59 am
--- NOTE | 2017-07-04 09:25 | HHI.DS ---
cc: Angelica Carter [employer]IST Discharge Summary Admission Date Jul 01, 2017 at 9:22 pm Discharge Date: Jul 04, 2017 Admitting Diagnosis Intractable abdominal pain, bacterial vaginosis, colitis (1) Shigella enteritis ICD Code: A03.9 - Shigellosis, unspecified (2) Colitis ICD Code: K52.9 - Noninfective gastroenteritis and colitis, unspecified Status: Acute (3) Bacterial vaginosis ICD Code: N76.0 - Acute vaginitis; B96.89 - Other specified bacterial agents as the cause of diseases classified elsewhere Status: Acute Procedures None. Brief History - From Admission 32-year-old female with no significant past medical history presents to the emergency department with 72 hours of abdominal pain and diarrhea. The patient reports fecal incontinence and severe lower abdominal pain with associated diarrhea. She denies any nausea/vomiting. No fevers/chills. She reports that the pain is still severe despite IV pain medication. No chest pain or shortness of breath. No fatigue. CBC/BMP: 07/03/17 0022 07/03/17 1130 Significant Findings Laboratory Tests Test 07/01/17 16:25 07/01/17 16:26 07/01/17 16:32 07/02/17 05:35 Urine Turbidity HAZY (CLEAR) Urine Protein 30 mg/dL (NEG-TRACE) Urine Occult Blood MOD (NEG) Urine RBC 6 /hpf (0-3) Urine Mucus MANY /lpf (OCC) White Blood Count 15.0 TH/MM3 (4.0-11.0) Mean Corpuscular Hemoglobin 26.6 PG (27.0-34.0) Neutrophils (%) (Auto) 82.2 % (16.0-70.0) Monocytes (%) (Auto) 8.4 % (0.0-8.0) Neutrophils # (Auto) 12.4 TH/MM3 (1.8-7.7) Monocytes # (Auto) 1.3 TH/MM3 (0-0.9) Aspartate Amino Transf (AST/SGOT) 13 U/L (15-37) Potassium Level 3.4 MEQ/L (3.5-5.1) 3.4 MEQ/L (3.5-5.1) Chloride Level 109 MEQ/L (98-107) 109 MEQ/L (98-107) Lipase 70 U/L (73-393) Clue Cells (Wet Prep) PRESENT (NONE) Blood Urea Nitrogen 6 MG/DL (7-18) Random Glucose 71 MG/DL (74-106) Calcium Level 8.1 MG/DL (8.5-10.1) Test 07/02/17 09:21 07/02/17 09:25 07/03/17 00:22 07/03/17 11:30 White Blood Count 12.6 TH/MM3 (4.0-11.0) 11.5 TH/MM3 (4.0-11.0) Hemoglobin 10.8 GM/DL (11.6-15.3) 10.6 GM/DL (11.6-15.3) Hematocrit 33.2 % (35.0-46.0) 32.6 % (35.0-46.0) Mean Corpuscular Hemoglobin 26.5 PG (27.0-34.0) 26.2 PG (27.0-34.0) Neutrophils (%) (Auto) 73.6 % (16.0-70.0) Monocytes (%) (Auto) 8.5 % (0.0-8.0) 10.8 % (0.0-8.0) Neutrophils # (Auto) 9.3 TH/MM3 (1.8-7.7) Monocytes # (Auto) 1.1 TH/MM3 (0-0.9) 1.2 TH/MM3 (0-0.9) Blood Urea Nitrogen 2 MG/DL (7-18) Calcium Level 8.4 MG/DL (8.5-10.1) Chloride Level 112 MEQ/L (98-107) Imaging Last Impressions Abdomen/Pelvis CT 07/01/17 0000 Signed Impressions: Service Date/Time: Saturday, July 01, 2017 19:00 - CONCLUSION: 1. No definite acute abnormality seen. 2. Portable thickening of the sigmoid colon versus simple lack of distention. In the correct clinical situation, some degree of colitis cannot be excluded. Surrounding inflammatory change is not seen. Alexandro Hinkle MD PE at Discharge GENERAL: Well-nourished, well-developed young female patient in [place]. Resting comfortably in bed, on cell phone. SKIN: Warm and dry. No rash. HEENT: Normocephalic. Atraumatic.Pupils equal and round.Mucous membranes pink and moist. CARDIOVASCULAR: Regular rate and rhythm. No murmur appreciated. RESPIRATORY: No accessory muscle use. Clear to auscultation. Breath sounds equal bilaterally. GASTROINTESTINAL: Abdomen soft, nondistended, nontender today, improved. Normoactive bowel sounds x4. MUSCULOSKELETAL: No obvious deformities. Extremities without clubbing, cyanosis , or edema. NEUROLOGICAL: Awake and alert. No obvious cranial nerve deficits. Motor grossly within normal limits. Normal speech. PSYCHIATRIC: Appropriate mood and affect; insight and judgment normal. Pt update on day of discharge Follow up for shigella, colitis, BV. The patient reports feeling better again today. Only 4 episodes of diarrhea overnight. No fevers/chills. Abdominal pain improved. No nausea/vomiting. Tolerating oral intake with solid foods. She has no other medical complaints at this time. Hospital Course Sepsis with acute colitis, +shigella: Patient meets sepsis criteria upon arrival with WBC 15K, tachycardia HR 108, and suspected source-colitis. CT abd/ pelvis reviewed, shows thickening of the sigmoid colon, consistent with mild colitis. Stool studies positive for Shigella, negative for C.diff. Given antibiotics with po cipro/flagyl. Given IVF hydration as patient continued to have episodes of diarrhea. Pain control with IV morphine prn, transitioned to po [place]. Clear liquid diet initially, advanced to regular diet on day 2, patient tolerated well. Diarrhea improved by day 3, with only 4 small episodes of diarrhea overnight. Sepsis resolved. Patient stable for discharge. Encouraged to continue oral hydration after discharge. Bacterial Vaginosis: diagnosed in ER with +wet prep for clue cells. Continue flagyl to complete 1 week of treatment. Hypokalemia/Hypomagnesemia: secondary to diarrhea. Given po KCl replacement and IV mag sulfate x2G. Repeat K 3.5 and Mag 2.0. Resolved. Pt Condition on Discharge: Stable Discharge Disposition: Discharge Home Discharge Time: <= 30 minutes Discharge Instructions DIET: Follow Instructions for: As Tolerated, No Restrictions Activities you can perform: Regular-No Restrictions Follow up Referrals: PCP Follow-up - 1 Week with Angelica Carter New Medications: Lactobacillus Acidophilus (Lactinex) 1 Chew 1 TAB CHEW TID for Nutritional Supplement for 7 Days, #21 TAB 0 Refills Ciprofloxacin (Cipro) 500 Mg Tab 500 MG PO Q12HR for shigella/colitis for 4 Days, #8 TAB Metronidazole (Flagyl) 500 Mg Tab 500 MG PO Q8HR for colitis for 4 Days, #12 TAB Continued Medications: Ibuprofen (Ibuprofen) 600 Mg Tab 600 MG PO Q6H PRN for Pain/Inflammation, #40 TAB 0 Refills Discontinued Medications: Cephalexin (Cephalexin) 500 Mg Cap 500 MG PO Q12H for Infection, #10 CAP 0 Refills Charlotte Bagley PA-C Jul 04, 2017 9:25 am
== END 2017-07-04 10:04 | disposition home or self-care (01) ==
LOC: NEPD 15:20 → NEDA 21:22 → NEPHCDU 07-02 00:27
PROVIDERS: ADMIT Internal Medicine; ATTEND Internal Medicine
DX: A03.9 Shigellosis, unspecified (principal); K52.9 Noninfective gastroenteritis and colitis, unspecified; B96.89 Other specified bacterial agents as the cause of diseases classified elsewhere; N76.0 Acute vaginitis; E83.42 Hypomagnesemia; E87.6 Hypokalemia
CPT/HCPCS: 74177; 80048; 80053; 81001; 83690; 83735; 84703; 85025; 87210; 87491; 87493; 87506; 87591; 96361; 96365; 96375; 96376; 99285; G0378; J1885; J2270; J2405; J3475; J7030; Q9963; Q9967